=== PATIENT | female | born 1995 | race African-American/Black ===

== ENCOUNTER 2017-08-31 12:30 | Emergency (ER) | payer OTHER ==
[~2017-08-31] VITALS: Ht 165.1 cm; Wt 66.2 kg
[~2017-08-31 12:30] MED LIST: IBUP-103 PO; MULT-580 PO
[2017-08-31 12:36] VITALS: TEMP 36.7; Ht 165.1 cm; Wt 66.2 kg
--- NOTE | 2017-08-31 13:24 | EMERGENCY ROOM VISIT NOTE ---
ED Visit Note First contact with patient: 13:08 CHIEF COMPLAINT: Facial laceration HISTORY OF PRESENT ILLNESS: This 21-year-old female presents to the ER with chief complaint of a laceration just above her right eyebrow. The patient states the bleeding has stopped. The patient also admits to some swelling in the area. The patient's tetanus is up-to-date. The patient states that she was tickling her boyfriend and he accidentally hit her above the eye with his elbow. REVIEW OF SYSTEMS: 6 system review was performed and was negative unless stated otherwise in history of present illness. PMH: The patient is healthy; there is no significant medical or surgical history. SOCIAL HISTORY: Patient lives alone. The patient denies any tobacco or alcohol use. PHYSICAL EXAM: Vital Signs: Were reviewed reviewed Nurse's notes. GENERAL: 21- year-old female appears in no acute distress. MENTAL Status: The patient is alert, oriented, and coherent. EYES: Pupils are round, equal, and react briskly to light. FACE: There is a 1 cm laceration over the lateral aspect of the right eyebrow whose edges are gaping apart. There is no active bleeding and no foreign material in the wound. EMERGENCY DEPARTMENT COURSE: The wound was cleaned with saline 3 times. The wound was dried and Dermabond applied. DIAGNOSIS: 1 cm facial laceration DISCHARGE INSTRUCTIONS: Do not apply antibiotic ointment to this area. The skin glue will eventually fall off. You may get the area wet but do not soak your head under water. Any signs of infection, follow-up with your family doctor. Patient condition was: stable. Please see Emergency Department Medical Record for additional patient information; this may include discharge diagnosis, interpretation of EKG, laboratory, and/or radiologic studies, Emergency Department course, etc. Problem List Medical Problems: (1) No known health problems Status: Chronic Current/Historical Medications Scheduled Ibuprofen Tab (Advil), 400 MG PO PRN UD Multiple Vitamins W/ Minerals (Hair/Skin/Nails), 1 TAB PO DAILY Allergies Coded Allergies: No Known Allergies (Unverified , 01/09/15) Vital Signs Date Time Temp Pulse Resp B/P (MAP) Pulse Ox O2 Delivery O2 Flow Rate FiO2 08/31/17 12:36 36.7 89 16 96/66 100 Room Air Departure Information Referrals No Doctor, Assigned (PCP) Patient Instructions [facility]
[2017-08-31 13:34] VITALS: BP 121/88; PULSE 71; O2SAT 99
== END 2017-08-31 13:35 | disposition home or self-care (01) ==
LOC: C.EDB 12:32 → C.EDD 13:35
DX: S01.111A Laceration without foreign body of right eyelid and periocular area, initial encounter (principal); W50.0XXA Accidental hit or strike by another person, initial encounter; Y93.83 Activity, rough housing and horseplay

== ENCOUNTER 2017-09-07 10:53 | Emergency (ER) | payer OTHER ==
[~2017-09-07] VITALS: Ht 165.1 cm; Wt 67.2 kg
[2017-09-07 11:10] VITALS: TEMP 36.7; Ht 165.1 cm; Wt 67.2 kg
[2017-09-07 11:51] LABS: BASO % 0.4 %; BASO ABS # 0.03 K/uL (0-0.2); EOS % 1.1 %; EOS ABS # 0.08 K/uL (0-0.5); HEMATOCRIT 29.9 % (37-47); HEMOGLOBIN 9.5 g/dL (12.0-16.0); IG# 0.01 K/uL (0.00-0.02); LYMPH % 33.6 %; LYMPH ABS # 2.41 K/uL (1.2-3.4); MEAN CELL VOLUME 72.6 fL (80-100); MEAN CORPUSCULAR HEMOGLOBIN 23.1 pg (25-34); MEAN CORPUSCULAR HGB CONC 31.8 g/dl (32-36); MEAN PLATELET VOLUME 9.7 fL (7.4-10.4); MONO % 9.9 %; MONO ABS # 0.71 K/uL (0.11-0.59); NEUT % 54.9 %; NEUT ABS # 3.94 K/uL (1.4-6.5); PLATELET COUNT 418 K/uL (130-400); RED CELL DISTRIBUTION WIDTH CV 17.5 % (11.5-14.5); WHITE BLOOD COUNT 7.18 K/uL (4.8-10.8)
[2017-09-07 12:09] LABS: ALBUMIN 3.8 gm/dl (3.4-5.0); ALT/SGPT 12 U/L (12-78); AST/SGOT 15 U/L (15-37); BLOOD UREA NITROGEN 6 mg/dl (7-18); CARBON DIOXIDE 26 mmol/L (21-32); CREATININE 0.59 mg/dl (0.60-1.20); GLUCOSE 79 mg/dl (70-99); LIPASE 71 U/L (73-393); POTASSIUM 3.2 mmol/L (3.5-5.1); SODIUM 138 mmol/L (136-145)
[2017-09-07 12:11] LABS: ALKALINE PHOSPHATASE 89 U/L (45-117); TOTAL PROTEIN 8.3 gm/dl (6.4-8.2)
[2017-09-07] MEDS ORDERED: AZITHROMYCIN 250 MG TAB PO ONE (12:15)
[2017-09-07] MEDS ORDERED: ONDANSETRON INJ 2 MG/ML 2 ML VIAL IV STA (12:15)
[2017-09-07] MEDS ORDERED: SODIUM CHLORIDE 0.9% 1000ML 1,000 ML IV ONE (12:15)
[2017-09-07] MEDS ORDERED: CEFTRIAXONE SOD 350MG/ML 1 GM VIAL IM ONE (12:15)
[2017-09-07] MEDS ORDERED: KETOROLAC TROMETHAMINE 30 MG/ML VIAL IV STA (12:15)
[2017-09-07 14:07] VITALS: BP 102/69; PULSE 73; O2SAT 100
--- NOTE | 2017-09-07 19:25 | EMERGENCY ROOM VISIT NOTE ---
ED Visit Note First contact with patient: 11:55 Chief Complaint: Abdominal pain. History of Present Illness: Ms. Zelaya is a 21 year-old female who ambulates into the ED complaining of upper abdominal pain. Historically patient reports she has a previous history of bacterial vaginosis that was treated successfully approximately 1 year ago without any complications. Additionally socially patient reports that she has been seeing a male boyfriend for the last 3-4 months. They have been intermittent with unprotected intercourse. She then goes on to report that the boy reported that he had a chlamydia infection yesterday. Patient reports a rapid progression of upper abdominal pain that started yesterday approximately 23 hours prior to arrival at the hospital. Patient reports her pain was constant throughout yesterday and after waking today she reports her pain has been decreasing in intensity and intermittent. Yesterday she reports her pain was at a level of 7/10 and currently it is 1/10. The pain was then radiating around the upper abdomen and into the bilateral flank area. She was not able to identify any aggravating or alleviating factors related to the pain. She did not take any medications yesterday or today for her pain. She reports associated with her pain she has had chills but no paty fever and some nausea but no vomiting. Additionally patient reports over the last few months she has had one significant sore throat that resolved after a week, she had noted intermittent increase in vaginal discharge, and her menstrual cycles have become irregular. She also reports that her menstrual cycle started yesterday in the midst of her pain and reports this is a week earlier than expected and she has had noted an increase in amount of bleeding but no passage of material or large clots. Patient denies sweats, skin eruptions, skin color changes, upper respiratory tract symptoms, shortness of breath, chest pain, diarrhea, constipation, rectal bleeding, black/tarry stools, urinary symptoms, hematuria, painful intercourse, postcoital bleeding. Review of Systems: As noted above in history of present illness. All body systems were reviewed and found to be negative as noted above. Past Medical History: As previously noted. Current Medications: Patient denies. Allergies to Medications: Patient denies. 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 Physical Examination: Vital Signs: Date Time Temp Pulse Resp B/P (MAP) Pulse Ox O2 Delivery O2 Flow Rate FiO2 09/07/17 14:07 73 16 102/69 100 09/07/17 12:43 61 16 103/66 100 Room Air 09/07/17 11:10 36.7 89 16 129/78 97 Room Air GENERAL: 21-year-old female in mild distress due to pain, nontoxic-appearing, afebrile and hemodynamically stable. NEUROLOGICAL: Awake, alert and oriented to person, place and time. Answering questions appropriately and following commands. Normal gait. Good hand eye coordination. SKIN: Warm, dry and pink. No soft tissue eruptions or trauma noted. HEENT: Atraumatic and normocephalic. PERRLA. Sclera white and conjunctiva pink. Oral cavity moist and pink. Pharynx is nonerythematous or edematous. Speech normal. No lymphadenopathy. Trachea midline. No jugular venous distention. BACK: No tenderness over the bony spine. Minimal left-sided CVA tenderness. THORAX: Lungs sounds are clear to auscultation and equal bilaterally with symmetrical chest wall. No wheezing, rales or rhonchi. No crepitus, tenderness , subcutaneous air or deformities noted. HEART: Regular rate and rhythm. No gallops, rubs or murmurs are appreciated. ABDOMEN: Flat, soft and nontender. Positive bowel sounds in all quadrants. No guarding, rigidity or organomegaly. EXTREMITIES: Moves all extremities well on command and with purpose. All distal neurovascular statuses are intact and equal bilaterally. ED Course: Patient is assessed as noted above. Laboratory Testing: Test 09/07/17 11:25 09/07/17 11:40 Range/Units Urine Color YELLOW Urine Appearance CLEAR CLEAR Urine pH 6.0 4.5-7.5 Urine Specific [place] 1.016 1.000-1.030 Urine Protein NEG NEG Urine Glucose (UA) NEG NEG Urine Ketones NEG NEG Urine Occult Blood 1+ NEG Urine Nitrite NEG NEG Urine Bilirubin NEG NEG Urine Urobilinogen NEG NEG Urine Leukocyte Esterase NEG NEG Urine WBC (Auto) 1-5 0-5 /hpf Urine RBC (Auto) 0-4 0-4 /hpf Urine Hyaline Casts (Auto) 1-5 0-5 /lpf Urine Epithelial Cells (Auto) 10-20 0-5 /lpf Urine Bacteria (Auto) NEG NEG Urine Test NEG NEG White Blood Count 7.18 4.8-10.8 K/uL Red Blood Count 4.12 4.2-5.4 M/uL Hemoglobin 9.5 12.0-16.0 g/dL Hematocrit 29.9 37-47 % Mean Corpuscular Volume 72.6 80-100 fL Mean Corpuscular Hemoglobin 23.1 25-34 pg Mean Corpuscular Hemoglobin Concent 31.8 32-36 g/dl Platelet Count 418 130-400 K/uL Mean Platelet Volume 9.7 7.4-10.4 fL Neutrophils (%) (Auto) 54.9 % Lymphocytes (%) (Auto) 33.6 % Monocytes (%) (Auto) 9.9 % Eosinophils (%) (Auto) 1.1 % Basophils (%) (Auto) 0.4 % Neutrophils # (Auto) 3.94 1.4-6.5 K/uL Lymphocytes # (Auto) 2.41 1.2-3.4 K/uL Monocytes # (Auto) 0.71 0.11-0.59 K/uL Eosinophils # (Auto) 0.08 0-0.5 K/uL Basophils # (Auto) 0.03 0-0.2 K/uL RDW Standard Deviation 47.0 36.4-46.3 fL RDW Coefficient of Variation 17.5 11.5-14.5 % Immature Granulocyte % (Auto) 0.1 % Immature Granulocyte # (Auto) 0.01 0.00-0.02 K/uL Sodium Level 138 136-145 mmol/L Potassium Level 3.2 3.5-5.1 mmol/L Chloride Level 106 98-107 mmol/L Carbon Dioxide Level 26 21-32 mmol/L Anion Gap 6.0 3-11 mmol/L Blood Urea Nitrogen 6 7-18 mg/dl Creatinine 0.59 0.60-1.20 mg/dl Est Creatinine Clear Calc Drug Dose 134.6 ml/min Estimated GFR () > 150.0 Estimated GFR (Non- 130.1 BUN/Creatinine Ratio 9.5 10-20 Random Glucose 79 70-99 mg/dl Calcium Level 9.0 8.5-10.1 mg/dl Total Bilirubin 0.4 0.2-1 mg/dl Aspartate Amino Transf (AST/SGOT) 15 15-37 U/L Alanine Aminotransferase (ALT/SGPT) 12 12-78 U/L Alkaline Phosphatase 89 45-117 U/L Total Protein 8.3 6.4-8.2 gm/dl Albumin 3.8 3.4-5.0 gm/dl Globulin 4.5 2.5-4.0 gm/dl Albumin/Globulin Ratio 0.8 0.9-2 Lipase 71 73-393 U/L Patient was hydrated with normal saline and she received 30 mg of Toradol IV for pain and 4 mg of Zofran IV for nausea. Patient's case was reviewed with Dr. Baeza; he recommended any diagnostic imaging or a pelvic examination would be not helpful in treating the patient. We agreed to treat the patient prophylactically and have her follow-up with gynecology at [facility]. Patient received 250 mg of ceftriaxone IM and 1 g of azithromycin by mouth. Patient was reassessed multiple times during her stay in the emergency department. Patient was educated about today's findings and instructed on her treatment plan ; she verbalized understanding and agreement with this plan. Clinical Impression: Abdominal pain. Possible chlamydia infection. Decision-Making: Initially my differential diagnosis I considered STD infection , pancreatitis, hepatitis, esophagitis, gastric reflux, constipation, PID, and other causes. Disposition: Patient discharged home in stable condition; prior to departure she was reassessed and subjectively reported she was feeling much better and rated her discomfort 1/10. Plan: Patient was encouraged alternate ibuprofen and acetaminophen as needed for pain every 3 hours. Patient was encouraged to stay well-hydrated with increased clear fluids. Patient was encouraged not to engage in vaginal sex. Patient was encouraged to follow-up with gynecology for definitive care and treatment. Patient was encouraged return the ED for worsening/uncontrolled pain, fevers, vomiting or any new/concerning symptoms.
== END 2017-09-07 14:11 | disposition home or self-care (01) ==
LOC: C.EDB 10:55 → C.EDC 14:11
DX: R10.10 Upper abdominal pain, unspecified (principal); Z20.2 Contact with and (suspected) exposure to infections with a predominantly sexual mode of transmission